=== PATIENT | female | born 1940 | race Caucasian/White ===

== ENCOUNTER → 2018-02-07 | Outpatient (CLI) | payer OTHER ==
[~2018-02-07] MED LIST: BUPR-79 PO; CALC600T9 PO; LORA-741 PO; MELO7.5T5 PO; MULT-884 PO; PRLSR20 PO; RANI300T2 PO; VITA400C28 PO; VITAMIN D PO
--- NOTE | 2018-02-07 12:49 | DIAGNOSTIC IMAGING REPORT ---
CHEST 2 VIEWS ROUTINE CLINICAL HISTORY: PAT preoperative evaluation COMPARISON STUDY: No previous studies for comparison. FINDINGS: The bones soft tissues and hemidiaphragms are normal. The cardiomediastinal silhouette is normal. The lungs are clear. The pulmonary vasculature is normal. IMPRESSION: Negative chest. The above report was generated using voice recognition software. It may contain grammatical, syntax or spelling errors. Electronically signed by: Avery Burleson M.D. 02/07/2018 12:48 PM Dictated Date/Time: 02/07/2018 12:48 PM
[2018-02-07 12:52] LABS: BASO % 0.3 %; BASO ABS # 0.02 K/uL (0-0.2); EOS % 0.9 %; EOS ABS # 0.06 K/uL (0-0.5); HEMATOCRIT 42.1 % (37-47); HEMOGLOBIN 13.6 g/dL (12.0-16.0); IG# 0.01 K/uL (0.00-0.02); LYMPH % 24.8 %; LYMPH ABS # 1.62 K/uL (1.2-3.4); MEAN CELL VOLUME 102.7 fL (80-100); MEAN CORPUSCULAR HEMOGLOBIN 33.2 pg (25-34); MEAN CORPUSCULAR HGB CONC 32.3 g/dl (32-36); MONO % 7.4 %; MONO ABS # 0.48 K/uL (0.11-0.59); NEUT % 66.4 %; NEUT ABS # 4.33 K/uL (1.4-6.5); PLATELET COUNT 265 K/uL (130-400); RED CELL DISTRIBUTION WIDTH CV 13.8 % (11.5-14.5); RED CELL DISTRIBUTION WIDTH SD 52.4 fL (36.4-46.3); WHITE BLOOD COUNT 6.52 K/uL (4.8-10.8)
[2018-02-07 13:00] LABS: PTT PATIENT 26.3 SECONDS (21.0-31.0)
[2018-02-07 13:01] LABS: ALBUMIN 3.7 gm/dl (3.4-5.0); BLOOD UREA NITROGEN 26 mg/dl (7-18); CALCIUM 9.5 mg/dl (8.5-10.1); CARBON DIOXIDE 29 mmol/L (21-32); CREATININE 1.12 mg/dl (0.60-1.20); GLUCOSE 112 mg/dl (70-99); POTASSIUM 4.6 mmol/L (3.5-5.1); SODIUM 141 mmol/L (136-145)
[2018-02-07 13:07] LABS: HEMOGLOBIN A1C 5.9 % (4.5-5.6)
== END | disposition home or self-care (01) ==
LOC: C.CPL 11:25
DX: Z01.810 Encounter for preprocedural cardiovascular examination (principal); Z01.811 Encounter for preprocedural respiratory examination; Z01.812 Encounter for preprocedural laboratory examination

== ENCOUNTER 2018-02-24 05:21 | Inpatient (IN) | payer OTHER ==
[2018-01-31 11:20] VITALS: BMI 29.0
--- NOTE | 2018-02-07 11:24 | PAT Medication Instructions ---
Service Date Feb 07, 2018. Current Home Medication List Bupropion (Wellbutrin Sr), 150 MG PO QAM Calcium Carbonate-Vitamin D (Calcium + D), 1 TAB PO QAM Lorazepam (Ativan), 0.5 MG PO TID PRN for ANXIETY Meloxicam (Mobic), 15 MG PO QAM Multiple Vitamin (Multi Vitamin Daily), 1 TAB PO QAM Omeprazole (Prilosec), 40 MG PO QAM Ranitidine (Zantac), 300 MG PO HS Vitamin E (Alph-E), 400 UNITS PO QAM [Vitamin D], 400 MG PO PRN Medication Instructions For Your Scheduled Surgery - Check with surgeon for instructions: Meloxicam (Mobic), 15 MG PO QAM - Hold the following medications the morning of surgery: Calcium Carbonate-Vitamin D (Calcium + D), 1 TAB PO QAM Multiple Vitamin (Multi Vitamin Daily), 1 TAB PO QAM [Vitamin D], 400 MG PO PRN - Take the following medications the morning of surgery with a sip of water: Bupropion (Wellbutrin Sr), 150 MG PO QAM Lorazepam (Ativan), 0.5 MG PO TID PRN for ANXIETY (if needed) Omeprazole (Prilosec), 40 MG PO QAM - Take the following medications as scheduled the night before surgery: Lorazepam (Ativan), 0.5 MG PO TID PRN for ANXIETY (if needed) Ranitidine (Zantac), 300 MG PO HS [Vitamin D], 400 MG PO PRN (if needed) If you have any questions please call us at [phone] or [phone] or [phone]
--- NOTE | 2018-02-19 12:06 | HISTORY & PHYSICAL EXAMINATION ---
DATE OF ADMISSION: 02/24/2018 CHIEF COMPLAINT: Left hip pain. 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 She lives alone and has trouble with activities of daily living. She has pain with prolonged weightbearing and standing activities. She has difficulty kneeling, bending, or squatting activities. Due to ongoing pain and disability, she now desires to proceed with left total hip arthroplasty. PAST MEDICAL HISTORY: Depression, acid reflux, GERD. PAST SURGICAL HISTORY: Tubal ligation, bilateral cataract surgery. MEDICATIONS: Bupropion XL 150 mg daily, calcium carbonate 1250 mg daily, vitamin D3 400 units daily, magnesium 250 mg daily, meloxicam 15 mg daily, multivitamin daily, omeprazole 40 mg daily, ranitidine 300 mg daily, vitamin E 100 units daily. ALLERGIES: No known drug allergies. SOCIAL HISTORY AND REVIEW OF SYSTEMS: Noncontributory. PHYSICAL EXAMINATION: GENERAL: Well-nourished, well-developed elderly female who appears her stated age. HEENT: Normocephalic, atraumatic. Extraocular movements intact. Oropharynx pink and moist. NECK: Supple without adenopathy. LUNGS: Clear to auscultation bilaterally. HEART: Regular rate and rhythm. ABDOMEN: Soft, nontender, nondistended. EXTREMITIES: The upper extremities are within normal limits. The left hip demonstrates limited range of motion. There is limitation of active and passive internal/external rotation with pain at end range. X-RAYS: X-rays were reviewed. She has [id number]-[id number] osteoarthritis about the left hip with near complete loss of the joint space. There are osteophytes about the femoral head. ASSESSMENT: Left hip degenerative joint disease. PLAN: Risks versus benefits were discussed, consent was obtained. The patient's primary care physician is Dr. Esthela Marsh from [facility]. We will proceed with left total hip arthroplasty as indicated.
[~2018-02-24] VITALS: Ht 160 cm; Wt 77.7 kg
[2018-02-24] VITALS (10 sets, daily range): BP systolic 96–147; BP diastolic 63–98; PULSE 74–101; TEMP 36.4–36.7; O2SAT 94–100; Ht 160 cm; Wt 77.7 kg
[2018-02-24] MEDS ORDERED: METOCLOPRAMIDE HCL 10 MG TAB PO SCH (06:00)
[2018-02-24] MEDS ORDERED: CeleBREX 200 MG CAP PO SCH (06:00)
[2018-02-24] MEDS ORDERED: DEXAMETHASONE 4 MG TAB PO SCH (06:00)
[2018-02-24] MEDS ORDERED: FAMOTIDINE 20 MG TAB PO SCH (06:00)
[2018-02-24] MEDS ORDERED: ROPIVACAINE 5MG/ML 30 ML 150 MG, BUPIVACAINE 0.5% MPF INJ 30 ML, EpINEphrine HCL INJ 0.... INFIL SCH ×8 (06:00)
[2018-02-24] MEDS ORDERED: CEFAZOLIN 2000MG IV PUSH 15 ML IV SCH (06:00)
[2018-02-24] MEDS ORDERED: LACTATED RINGER'S 1000ML IV SCH (06:00)
[2018-02-24] MEDS ORDERED: ACETAMINOPHEN 500 MG TAB PO SCH (06:00)
[2018-02-24] MEDS ORDERED: OXYCODONE HCL 10 MG TABCR (OXYCONTIN) PO SCH (06:00)
[2018-02-24] MEDS ORDERED: LACTATED RINGER'S 1000ML 500 ML IV SCH (06:00)
[2018-02-24] MEDS ORDERED: GABAPENTIN 300 MG CAP PO SCH (06:00)
[2018-02-24] MEDS: TRANEXAMIC ACID INJ 1,000 MG x 2 Bags IV SCH ×4 (06:30→07:35)
[2018-02-24] MEDS ORDERED: BUPIVACAINE 0.5 % 5 MG/1 ML PF 10ML VIAL ONE (06:47)
[2018-02-24] MEDS ORDERED: FENTANYL CITRATE INJ 50 MCG/1 ML 2 ML VIAL ONE (06:54)
[2018-02-24] MEDS ORDERED: MIDAZOLAM HCL 1 MG/ML 2ML VIAL ONE (06:54)
--- NOTE | 2018-02-24 07:00 | History & Physical Bridge Note ---
H&P Re-Evaluation Bridge Note: I have examined the patient, reviewed the History & Physical and in the interval since the performance of the History & Physical I have noted the following changes of clinical significance: No changes noted
[2018-02-24] MEDS ORDERED: ORTHO JOINT ANESTHETIC ONE (07:28)
[2018-02-24] MEDS ORDERED: BACITRACIN 50000 UNIT VIAL ONE (07:28)
[2018-02-24] MEDS ORDERED: POVIDONE-IODINE OP SOLN 30 ML BTL ONE (07:28)
[2018-02-24] MEDS ORDERED: ONDANSETRON INJ 2 MG/ML 2 ML VIAL ONE (07:38)
[2018-02-24] MEDS ORDERED: PROPOFOL IV EMULSION 10 MG/ML 20 ML VIAL ONE (08:05)
[2018-02-24] MEDS ORDERED: ATROPINE SULFATE 0.1 MG/ML 5ML SYR IV PRN (08:15)
[2018-02-24] MEDS ORDERED: HYDROmorphone INJ 1 MG/ML SYR IV PRN (08:15)
[2018-02-24] MEDS ORDERED: EpHEDrine SULFATE INJ 50 MG/ML AMP IV PRN (08:15)
[2018-02-24] MEDS ORDERED: LABETALOL HCL IV 5 MG/ML 20ML IV PRN (08:15)
[2018-02-24] MEDS ORDERED: MEPERIDINE HCL 25 MG/ML CARP IV PRN (08:15)
[2018-02-24] MEDS ORDERED: ONDANSETRON INJ 2 MG/ML 2 ML VIAL IV PRN ×2 (08:15→09:30)
[2018-02-24] MEDS ORDERED: FENTANYL CITRATE INJ 50 MCG/1 ML 2 ML VIAL IV PRN (08:15)
--- NOTE | 2018-02-24 08:53 | [facility] Post Operative Brief Note ---
Immediate Operative Summary Operative Date Feb 24, 2018. Pre-Operative Diagnosis Left hip degenerative joint disease Post-Operative Diagnosis Left hip degenerative joint disease Procedure(s) Performed Left Total Hip Arthroplasty Surgeon Dr. Frost High School Coach Surgeon(s) Dontrell Lucio PA-C Estimated Blood Loss 100 ML Findings Consistent with Post-Op Diagnosis Specimens Permanent: A: Left hip/ femoral head Anesthesia Type MAC Spinal Regional Complication(s) none Disposition Accompanied Pt To Recover: no Disposition: Recovery Room / PACU Overlapping Procedure I was present for: the critical portions of procedure. I was immediately available: during the entire case
--- NOTE | 2018-02-24 09:22 | OPERATIVE REPORT ---
DATE OF OPERATION: 02/24/2018 PREOPERATIVE DIAGNOSIS: Osteoarthritis, left hip. POSTOPERATIVE DIAGNOSIS: Osteoarthritis, left hip. PROCEDURE: Left total hip arthroplasty. SURGEON: Dr. Frost. LOG TURNER: JASPER Kaye ANESTHESIA: Spinal. COMPLICATIONS: None. IMPLANTS USED: Acetabular reamer used 50, acetabular shell 50, femoral head -2.5 ceramic, femoral stem 3. DISPOSITION: Recovery room, stable. DESCRIPTION OF PROCEDURE: Following induction of adequate spinal anesthesia, the patient was placed in right lateral decubitus position and left Tone-Langenbeck incision was made. Subcutaneous tissue was sharply dissected. Electrocautery used for hemostasis. The fascia was incised throughout the length of the wound and a palafox scissor placed beneath the short external rotators. The pyriformis was tagged with #1 Vicryl. The short external rotators were divided from the posterior aspect of the femur using electrocautery. These were swept posteriorly. A T-capsulotomy incision was made and the hip was dislocated using a combination of flexion, adduction, and internal rotation. Exposure of the femoral neck with old-style Hohmann and a blunt Hohmann was carried out and a femoral rasp was utilized as a guide for making the appropriate level femoral neck cut. This bone fragment was removed and reserved on the back table. Next, attention was turned to the acetabulum where bone hook was used to retract the femur while the offset retractors were placed anterior and posteriorly. A double-angled Hohmann was placed in superior and anterior position exposing the acetabulum nicely. Acetabular labrum as well as posterior capsule elements were removed using a long knife and a long pickup. Fovea centralis was cleared of all soft tissue. Sequential reamings were carried up to a 50 and decision was made to proceed with impaction of a 50 trabecular metal cup. This was impacted and held using a single 35 mm bone screw. The acetabular liner was placed with 15 of elevated posterior wall in the superior and posterior position. Next, attention was turned to the femoral portion of the case where a Bovie and pickup was used to further clear short external rotators from their insertion on the femur. Box osteotome was used to gain access to the femoral canal and the T-handled rasp and a rattail rasp were used to further open and lateral the canal. Sequentially raspings were carried up to a 3 which gave good fit and fill of the proximal femur. A trial reduction was carried out and a 132-degree femoral neck component was chosen as the size to be used. A -2.5 mm ceramic femoral head was impacted into position, +0 head was utilized. The trial reduction was stable in all degrees of rotation with no [id number] impingement. The hip was dislocated. The trial components were removed and the final femoral stem, neck, and femoral head combination were assembled on the back table and impacted into position. Hip was relocated. Range of motion checked once again successful and the wound was irrigated. The pyriformis repaired to the greater trochanter using #1 Vicryl [id number] suture. A Hemovac drain was placed and the fascia was closed using #1 Vicryl, subcutaneous tissue was closed using 0 Dexon, and skin was closed with malissa. Sterile dressing of Adaptic, 4 x 4's, ABDs, and foam tape was applied. The patient tolerated the procedure well. Due to the complex nature of the procedure, the entire surgery was performed with the operational assistance of JASPER Kaye. The academic affairs assistant, under direct supervision, was involved in the actual performance of all aspects of the surgical procedure including hemostasis, tissue retraction and incision, instrument management, patient positioning, and wound closure. I attest to the content of the Intraoperative Record and any orders documented therein. Any exceptions are noted below. HIRO
[2018-02-24] MEDS ORDERED: MoRPHine SULFATE 2 MG/ML CARP IV PRN (09:30)
[2018-02-24] MEDS ORDERED: ALUMINUM/MAGNESIUM/SIMETH (MAALOX MAX) 30 ML UDC PO PRN (09:30)
[2018-02-24] MEDS ORDERED: CEFAZOLIN IV 1,000 MG in DEXTROSE 5% 50ML 50 ML IV SCH (09:30)
[2018-02-24] MEDS ORDERED: BISACODYL 10 MG SUPP PR PRN (09:30)
[2018-02-24] MEDS ORDERED: MAGNESIUM HYDROXIDE SUSP 30 ML UDC PO PRN (09:30)
[2018-02-24] MEDS ORDERED: TRAMADOL HCL 50 MG TAB PO PRN (09:30)
[2018-02-24] MEDS ORDERED: OXYCODONE HCL IR 5 MG TAB (IMMEDIATE RELEASE) PO PRN (09:30)
[2018-02-24] MEDS ORDERED: LORAZEPAM 0.5 MG TAB PO PRN (09:30)
--- NOTE | 2018-02-24 10:09 | DIAGNOSTIC IMAGING REPORT ---
AP PELVIS, CROSSTABLE LATERAL LEFT HIP History: Left total hip arthroplasty. Degenerative arthritis. Postop. FINDINGS: The patient is status post a left total hip arthroplasty. The hardware is intact. No fracture or dislocation. Surgical drains are in place. Moderate osteoarthritis within the right hip. IMPRESSION: Left total hip arthroplasty. No evidence for hardware complication. Electronically signed by: Boo Warner M.D. 02/24/2018 10:08 AM Dictated Date/Time: 02/24/2018 10:06 AM
--- NOTE | 2018-02-24 10:55 | Anesthesiology Progress Note ---
Anesthesia Post Op Note Date & Time Feb 24, 2018 at 10:55 Vital Signs Pain Intensity: 0.0 Vital Signs Past 12 Hours Date Time Temp Pulse Resp B/P (MAP) Pulse Ox O2 Delivery O2 Flow Rate FiO2 02/24/18 10:30 36.4 86 15 100/66 (77) 99 Nasal Cannula 2.0 02/24/18 10:30 Nasal Cannula 2.0 02/24/18 10:11 115/66 02/24/18 10:09 77 9 02/24/18 10:09 77 9 98 02/24/18 10:06 115/64 02/24/18 10:04 81 10 98 02/24/18 10:04 82 10 02/24/18 10:01 102/66 02/24/18 09:59 80 12 99 02/24/18 09:59 81 12 02/24/18 09:56 111/75 02/24/18 09:56 36.6 78 16 111/75 (87) 99 Nasal Cannula 2 02/24/18 09:54 87 9 98 02/24/18 09:54 86 9 02/24/18 09:53 86 11 02/24/18 09:53 84 11 100 02/24/18 09:51 107/63 02/24/18 09:48 86 14 02/24/18 09:48 84 14 98 02/24/18 09:47 101/90 02/24/18 09:43 85 8 99 02/24/18 09:43 84 8 02/24/18 09:41 108/63 02/24/18 09:38 86 9 99 02/24/18 09:38 86 9 02/24/18 09:37 82 10 100 02/24/18 09:37 83 10 02/24/18 09:36 100/63 02/24/18 09:32 91 18 02/24/18 09:32 91 18 100 02/24/18 09:31 96/56 02/24/18 09:29 90 10 02/24/18 09:29 89 10 104/59 100 02/24/18 09:24 36.5 90 14 101/57 95 Oxymask 10 02/24/18 06:00 36.6 92 20 147/98 94 Room Air Notes Mental Status: alert / awake / arousable, participated in evaluation Pt Amnestic to Procedure: Yes Nausea / Vomiting: adequately controlled Pain: adequately controlled Airway Patency, RR, SpO2: stable & adequate BP & HR: stable & adequate Hydration State: stable & adequate Neuraxial Anesthesia: was administered, sensory block is resolving Anesthetic Complications: no major complications apparent
[2018-02-24] MEDS: FERROUS GLUCONATE 324 MG TAB PO SCH ×2 (12:30→17:45)
[2018-02-24] MEDS: KETOROLAC TROMETHAMINE 15 MG/ML VIAL IV. SCH ×3 (12:43→23:18)
[2018-02-24] MEDS: ACETAMINOPHEN 500 MG TAB PO SCH ×2 (13:45→20:54)
[2018-02-24] MEDS: CEFAZOLIN IV 1,000 MG in SYRINGE 0 ML IV SCH ×2 (15:24→23:17)
[2018-02-24] MEDS ORDERED: NURSING VERBAL MED ORDER ONE ×2 (16:00→19:15)
[2018-02-24] MEDS ORDERED: PROMETHAZINE HCL INJ 12.5 MG in SODIUM CHLORIDE 0.9% 50ML 50 ML IV ONE (16:15)
[2018-02-24] MEDS ORDERED: ONDANSETRON INJ 8 MG in DEXTROSE 5% 50ML 50 ML IV PRN (16:15)
[2018-02-24] MEDS: D5W AND 1/2NSS + 20MEQ KCL 1,000 ML IV SCH (19:13)
[2018-02-24] MEDS: DOCUSATE SODIUM 100 MG CAP PO SCH (20:54)
[2018-02-24] MEDS: ASPIRIN 81 MG ECTAB PO SCH (20:54)
[2018-02-24] MEDS ORDERED: SENNA 8.6 MG TAB PO SCH (21:00)
[2018-02-24] MEDS ORDERED: RANITIDINE HCL 150 MG TAB PO SCH (21:00)
[2018-02-25 03:50] VITALS: BP 100/65; PULSE 89; TEMP 36.6; O2SAT 94
[2018-02-25] MEDS: D5W AND 1/2NSS + 20MEQ KCL 1,000 ML IV SCH (04:56)
[2018-02-25] MEDS: ACETAMINOPHEN 500 MG TAB PO SCH ×2 (05:33→13:34)
[2018-02-25] MEDS: KETOROLAC TROMETHAMINE 15 MG/ML VIAL IV. SCH (05:34)
[2018-02-25 06:33] LABS: HEMATOCRIT 28.3 % (37-47); HEMOGLOBIN 9.3 g/dL (12.0-16.0); IG# 0.01 K/uL (0.00-0.02); LYMPH % 12.1 %; LYMPH ABS # 1.07 K/uL (1.2-3.4); MEAN CELL VOLUME 101.8 fL (80-100); MEAN CORPUSCULAR HEMOGLOBIN 33.5 pg (25-34); MEAN CORPUSCULAR HGB CONC 32.9 g/dl (32-36); MONO % 8.1 %; MONO ABS # 0.71 K/uL (0.11-0.59); NEUT % 79.7 %; NEUT ABS # 7.02 K/uL (1.4-6.5); PLATELET COUNT 210 K/uL (130-400); RED CELL DISTRIBUTION WIDTH CV 13.8 % (11.5-14.5); RED CELL DISTRIBUTION WIDTH SD 51.8 fL (36.4-46.3); WHITE BLOOD COUNT 8.81 K/uL (4.8-10.8)
[2018-02-25 07:04] LABS: CALCIUM 8.1 mg/dl (8.5-10.1); CREATININE 0.97 mg/dl (0.60-1.20); POTASSIUM 4.4 mmol/L (3.5-5.1)
--- NOTE | 2018-02-25 07:34 | Orthopedic Progress Note ---
Orthopedic Progress Note Date of Service Feb 25, 2018. Subjective Post OP Day: 1 Reports: feeling well, Denies: chest pain, SOB, nausea / vomiting, light headedness, calf pain Objective calves soft nontender, N/V intact, hip located, dressing C/D/I, A&O x3, toes mobile, hemovac drainage (225/100 cc per shift) Date Time Temp Pulse Resp B/P (MAP) Pulse Ox O2 Delivery O2 Flow Rate FiO2 02/25/18 03:50 36.6 89 16 100/65 (77) 94 Room Air 02/24/18 23:20 36.6 101 16 111/65 (80) 96 Room Air 02/24/18 23:14 Room Air 02/24/18 18:55 36.7 88 16 96/63 (74) 97 Room Air 02/24/18 15:20 98 Room Air 02/24/18 15:12 95 16 106/71 (83) 99 2.0 02/24/18 13:22 82 14 107/73 (84) 100 2.0 02/24/18 12:23 83 12 110/72 (85) 99 2.0 02/24/18 11:26 75 14 103/66 (78) 100 2.0 02/24/18 10:57 74 9 98/64 (75) 99 Nasal Cannula 2.0 02/24/18 10:30 Nasal Cannula 2.0 02/24/18 10:30 36.4 86 15 100/66 (77) 99 Nasal Cannula 2.0 02/24/18 10:30 Nasal Cannula 2.0 02/24/18 10:11 115/66 02/24/18 10:09 77 9 02/24/18 10:09 77 9 98 02/24/18 10:06 115/64 02/24/18 10:04 81 10 98 02/24/18 10:04 82 10 02/24/18 10:01 102/66 02/24/18 09:59 80 12 99 02/24/18 09:59 81 12 02/24/18 09:56 111/75 02/24/18 09:56 36.6 78 16 111/75 (87) 99 Nasal Cannula 2 02/24/18 09:54 87 9 98 02/24/18 09:54 86 9 02/24/18 09:53 86 11 02/24/18 09:53 84 11 100 02/24/18 09:51 107/63 02/24/18 09:48 86 14 02/24/18 09:48 84 14 98 02/24/18 09:47 101/90 02/24/18 09:43 85 8 99 02/24/18 09:43 84 8 02/24/18 09:41 108/63 02/24/18 09:38 86 9 99 02/24/18 09:38 86 9 02/24/18 09:37 82 10 100 02/24/18 09:37 83 10 02/24/18 09:36 100/63 02/24/18 09:32 91 18 02/24/18 09:32 91 18 100 02/24/18 09:31 96/56 02/24/18 09:29 90 10 02/24/18 09:29 89 10 104/59 100 02/24/18 09:24 36.5 90 14 101/57 95 Oxymask 10 Laboratory Results 24 Hours: Test 02/25/18 05:27 White Blood Count 8.81 K/uL Red Blood Count 2.78 M/uL Hemoglobin 9.3 g/dL Hematocrit 28.3 % Mean Corpuscular Volume 101.8 fL Mean Corpuscular Hemoglobin 33.5 pg Mean Corpuscular Hemoglobin Concent 32.9 g/dl Platelet Count 210 K/uL Mean Platelet Volume 10.0 fL Neutrophils (%) (Auto) 79.7 % Lymphocytes (%) (Auto) 12.1 % Monocytes (%) (Auto) 8.1 % Eosinophils (%) (Auto) 0.0 % Basophils (%) (Auto) 0.0 % Neutrophils # (Auto) 7.02 K/uL Lymphocytes # (Auto) 1.07 K/uL Monocytes # (Auto) 0.71 K/uL Eosinophils # (Auto) 0.00 K/uL Basophils # (Auto) 0.00 K/uL Assessment & Plan Assessment: POD#1 sp left NILA Plan: PT/OT DVT proph- ASA 81mg bid Pain management- Crystal, Tylenol DC planning - DC home with [facility], possibly later today. Keep dressing/drain intact
--- NOTE | 2018-02-25 07:36 | Discharge Instructions ---
Discharge Instructions Date of Service Feb 25, 2018. Admission Reason for Admission: Left Hip Osteoarthritis Discharge Discharge Diagnosis / Problem: sp left NILA Discharge Goals Goal(s): Decrease discomfort, Improve function, Increase independence Activity Recommendations Activity Limitations: per Instructions/Follow-up section . Instructions / Follow-Up Instructions / Follow-Up ACTIVITY RECOMMENDATIONS: SELF CARE INSTRUCTIONS AFTER TOTAL HIP REPLACEMENT Until the incision and soft tissues around your hip have healed, there is a possibility that the hip prosthesis could dislocate. A. Observe the following precautions to prevent dislocation: 1. Don't bend your hip greater than 90 degrees. 2. Avoid crossing your legs or ankles while standing or lying. 3. Sit with your feet placed 6 inches apart. 4. When sitting, keep your knees below your hips. Sit on a firm surface, avoid deep, soft chairs and couches. Use an elevated toilet seat in the bathroom. 5. Don't bend over at the waist. Use a long handled shoehorn and a sock aid to help you put on your shoes and socks. A marine equipment sales engineer can help you strip picker objects that are too high or too low to reach. 6. Keep car riding to a minimum for at least one month after surgery. B. Your balance may be shaky for a while. Use crutches or a walker until directed by your doctor. C. Use hand rails when walking on stairs. D. Wear low heeled shoes with non-slip soles. E. Be sure that your floors are free of things that could trip you - throw rugs , electrical cords, small objects. Avoid wet and waxed floors, especially with crutches and canes. F. Try to walk several times a day with rest periods between. G. Continue with all the exercises taught to you in the hospital. Again, make walking a part of your daily routine. SPECIAL CARE INSTRUCTIONS: VERY IMPORTANT TO READ AND REVIEW A. You may still be at risk for phlebitis and blood clots. 1. Wear surgical stockings (DOMINICK hose) for 2 weeks after surgery to improve circulation and reduce swelling. 2. Take Aspirin 81mg twice daily for 4 weeks or as directed by your doctor. This is your blood thinner. 3. High risk patients may be prescribed a stronger blood thinner if necessary. 4. If you are on Coumadin normally, your family doctor/syrup mixer helper should monitor your blood work. Expect a phone call the day of or the day after bloodwork is drawn to adjust your dosage. B. You must take antibiotics before having dental work, bladder, bowel and other surgery. Your doctor will provide you with a permanent card to carry describing precautions. C. Call [facility] if you have a fever, redness or swelling around the incision, cloudy drainage from incision, or sudden increase in pain in your hip, not relieved by your regular pain medication. D. Please call the office at if you have any concerns or questions about your operation or recovery. * YOU MAY SHOWER, NO TUB BATHS UNTIL CLEARED BY YOUR DOCTOR. * WEAR DOMINICK HOSE 20 HOURS PER DAY FOR 2 WEEKS. * YOU SHOULD USE A WALKER OR CRUTCHES FOR 2-4 WEEKS. THIS WILL HELP PREVENT STRAIN ON YOUR HIP MUSCLE AND ALLOW IT TO HEAL PROPERLY. YOU MAY WEAN TO A CANE TOLERATED. * MOST PATIENTS WILL HAVE HOME NURSING FOR THERAPY. IF YOU DECIDE TO DO OUTPATIENT PHYSICAL THERAPY, PLEASE SCHEDULE THIS 3 TIMES PER WEEK. Zip Skin Closure You have a Zipline Closure System. As noted below, this keeps your incision closed. Change the dressing daily. Keep the wound covered with a dressing as it has the potential to snag on your clothing. The Zipline will remain on for a total of 2 weeks. Do not remove it! You will be given instructions by nursing staff at the time of discharge to care for your Zip Closure System. This devices uses plastic straps to keep your incision closed and protected throughout your recovery. If you have any questions please refer to these instructions first. FOLLOW UP VISIT: If appointment is not already scheduled: Please call [facility] to make a follow-up appointment for 2 weeks after your surgery at . Current Hospital Diet Patient's current hospital diet: Regular Diet Discharge Diet Recommended Diet: Regular Diet Procedures Procedures Performed: Left Total Hip Arthroplasty Pending Studies Studies pending at discharge: no Laboratory Results Hemoglobin A1c Test 02/07/18 12:15 Range/Units Estimated Average Glucose 123 mg/dl Hemoglobin A1c 5.9 H 4.5-5.6 % Medical Emergencies . Who to Call and When: Medical Emergencies: If at any time you feel your situation is an emergency, please call 911 immediately. . Non-Emergent Contact Non-Emergency issues call your: Surgeon . "Provider Documentation" section prepared by Lissa Mueller. .
[2018-02-25 07:41] VITALS: BP 98/64; PULSE 82; TEMP 36.6; O2SAT 93
[2018-02-25] MEDS ORDERED: MULTIVITAMIN TAB PO SCH (09:00)
[2018-02-25] MEDS ORDERED: PANTOprazole SOD 40 MG TAB PO SCH (09:00)
[2018-02-25] MEDS ORDERED: BuPROPion SR 150 MG TABCR PO SCH (09:00)
[2018-02-25] MEDS: FERROUS GLUCONATE 324 MG TAB PO SCH ×2 (09:06→13:33)
[2018-02-25] MEDS: ASPIRIN 81 MG ECTAB PO SCH (09:06)
[2018-02-25] MEDS: DOCUSATE SODIUM 100 MG CAP PO SCH (09:06)
[2018-02-25 11:48] VITALS: BP 106/68; PULSE 89; TEMP 36.6; O2SAT 90
[2018-02-25] MEDS ORDERED: CLB200 PO (12:45)
[2018-02-25] MEDS ORDERED: ACET-24 PO (12:45)
[2018-02-25] MEDS ORDERED: SENN-61 PO (12:45)
[2018-02-25] MEDS ORDERED: ASPI-461 PO (12:45)
[2018-02-25] MEDS ORDERED: ONDA-170 PO (12:45)
[2018-02-25] MEDS ORDERED: RXC5 PO (12:45)
[2018-02-25 15:39] VITALS: BP 106/68; PULSE 89; TEMP 36.6; O2SAT 90
[2018-02-25] MEDS ORDERED: CeleBREX 200 MG CAP PO SCH (21:00)
--- NOTE | 2018-03-04 16:43 | DISCHARGE SUMMARY ---
DISCHARGE DIAGNOSIS: Degenerative joint disease, left hip. SECONDARY DIAGNOSES: Depression, gastroesophageal reflux disease. CONSULTS: None. COMPLICATIONS: None. PROCEDURES: Left total hip arthroplasty performed by Dr. Frost on 02/24/2018. BRIEF HISTORY: As dictated in the history and physical. HOSPITAL SUMMARY: The patient was admitted on the above-noted date and had the above-noted surgery performed which she tolerated well. On her first postoperative day, she was feeling well and had no complaints. Calves were soft, nontender. Neurovascularly intact. Hip was located. Dressings clean, dry and intact. Toes were mobile. Vital signs were stable and she was afebrile and hemoglobin was 9.3. She was started on physical therapy protocol and continued on DVT prophylaxis and pain management. She was progressing well with her physical therapy. Vital signs remaining stable and she was thusly discharged to home on 02/25/2018 with home health services to do dressing change and drain removal the following day. For further review, please see chart. LAB AND X-RAY DATA: As per chart. DISCHARGE INSTRUCTIONS: The patient was discharged to home in satisfactory condition on 02/25/2018. Diet: Regular. Activity: Weightbearing as tolerated, left lower extremity. Follow NILA instruction sheets and special care instructions as noted. Follow up with Dr. Frost in 2 weeks. The patient to call for appointment if one has not been made for you. DISCHARGE MEDICATIONS: Acetaminophen 1000 mg p.o. q. 8 hours for 30 days, aspirin 81 mg p.o. b.i.d. for 30 days, Celebrex 200 mg p.o. b.i.d., Zofran 8 mg p.o. q. 8 hours p.r.n. nausea, oxycodone 5-10 mg p.o. q. 4 hours p.r.n., senna 17.2 mg p.o. at bedtime. Resume home meds as listed and stop taking meloxicam.
== END 2018-02-25 16:35 | disposition home health service (06) | DRG 470 ==
LOC: C.ACU 05:21 → C.3E 06:50 → ENRESERV 09:55
PROC: 0SRB03Z Replacement of Left Hip Joint with Ceramic Synthetic Substitute, Open Approach (ICD-10-PCS; principal; 2018-02-24 07:30)
DX: M16.12 Unilateral primary osteoarthritis, left hip (principal); F32.9 Major depressive disorder, single episode, unspecified; K21.9 Gastro-esophageal reflux disease without esophagitis